=== PATIENT | female | born 1975 | race Two or more races ===

== ENCOUNTER 2019-10-09 18:51 | Emergency (ER) | payer OTHER ==
[~2019-10-09] VITALS: Ht 177.8 cm; Wt 85.3 kg
[~2019-10-09 18:51] MED LIST: CELEBREX100 MG PO; CYMBALTA30 MG; MIRALAX510 GM PO; SKELAXIN800 MG PO; SULFAMETHOXAZOL1 TA4 PO; SYNTHROID75 MCG; [UNRECOGNIZED DRUG - REMARK]
[2019-10-10] MEDS ORDERED: KETO10TA2 PO (02:26)
== END 2019-10-10 02:39 ==
LOC: ER 18:51
DX: N83.292 Other ovarian cyst, left side (principal); D25.9 Leiomyoma of uterus, unspecified

== ENCOUNTER 2019-10-20 17:49 | Emergency (ER) | payer OTHER ==
[~2019-10-20] VITALS: Ht 177.8 cm; Wt 86.2 kg
[~2019-10-20 17:49] MED LIST changes: +KETO10TA2 PO
== END 2019-10-20 19:48 | disposition home or self-care (01) ==
LOC: ER 17:49
DX: N83.291 Other ovarian cyst, right side (principal)

== ENCOUNTER → 2021-12-01 | Emergency (ER) | payer OTHER ==
[~2021-12-01] VITALS: Ht 152.4 cm; Wt 81.6 kg
== END | disposition home or self-care (01) ==
LOC: ER 20:33
DX: M54.32 Sciatica, left side (principal)

== ENCOUNTER 2022-06-24 00:39 | Emergency (ER) | payer OTHER ==
[~2022-06-24] VITALS: Ht 177.8 cm; Wt 83.9 kg
[2022-06-24] MEDS ORDERED: DICLOFENAC POTA50 MG PO (03:18)
[2022-06-24] MEDS ORDERED: NORFLEX100MG PO (03:18)
== END 2022-06-24 03:43 | disposition home or self-care (01) ==
LOC: ER 00:39
DX: R07.89 Other chest pain (principal); M54.9 Dorsalgia, unspecified

== ENCOUNTER 2023-11-18 03:13 | Emergency (ER) | payer OTHER ==
[~2023-11-18] VITALS: Ht 378.5 cm; Wt 86.2 kg
[~2023-11-18 03:13] MED LIST changes: +DICLOFENAC POTA50 MG PO; +NORFLEX100MG PO
[2023-11-18] MEDS ORDERED: PROMETHAZINE HCL 50 MG/ML AMPUL IM STA (03:58)
[2023-11-18] MEDS ORDERED: MEPERIDINE HCL/PF 50 MG/ML VIAL IM STA (03:58)
[2023-11-18] MEDS ORDERED: 0.9 % SODIUM CHLORIDE 1,000 ML IV ONE (04:00)
[2023-11-18 04:20] LABS: HEMATOCRIT 41.4 % (36.0-45.00); HEMOGLOBIN 13.9 g/dL (12.0-15.00); MEAN CORPUSCULAR HEMOGLOBIN 27.2 pg (27.00-32.0); MEAN CORPUSCULAR HGB CONC 33.5 g/dl (32.0-36.0); PLATELET COUNT 210 K/uL (150-450); RED BLOOD COUNT 5.11 M/uL (4.00-6.00); RED CELL DISTRIBUTION WIDTH 14.6 % (11.5-14.5)
[2023-11-18 04:51] LABS: ANION GAP 10 (10.0-20.0); BLOOD UREA NITROGEN 14 mg/dL (7-18); BUN CREA RATIO 18 (7.0-25.0); CALCIUM 8.9 mg/dL (8.5-10.1); CARBON DIOXIDE 25 mEq/L (21-32); CHLORIDE 109 mmol/L (98-107); GFR 77.22; GLUCOSE FASTING 130 mg/dL (65-100); OSMOLALITY SERUM 282 MOSM/KG (275-295); POTASSIUM 3.55 mEq/L (3.5-5.1); SODIUM 140 mmol/L (136-145)
[2023-11-18 04:52] LABS: HCG QUANTITATIVE < 1 mUI/mL (1-3)
[2023-11-18 04:56] LABS: URINE APPEARANCE Clear; URINE BILIRRUBIN Negative (NEGATIVE); URINE BLOOD Large; URINE COLOR Red; URINE GLUCOSE Negative (NEGATIVE); URINE LEUKOCYTE Small; URINE NITRATE Negative; URINE UROBILINOGEN 0.2 E.U./dl
[2023-11-18 04:57] LABS: URINE BACTERIA 343.9 uL (0.0-1933); URINE EPITHELIAL CELLS 3.5 uL (0.0-38.8); URINE RBC 9112.1 uL (0.0-20.8); URINE WBC 31.3 uL (0.0-23.2)
[2023-11-18 05:08] LABS: URINE PROTEIN 100 (NEGATIVE)
== END 2023-11-18 09:54 | disposition home or self-care (01) ==
LOC: ER 03:13
PROVIDERS: General Practice
DX: R10.2 Pelvic and perineal pain (principal); N93.8 Other specified abnormal uterine and vaginal bleeding; E28.319 Asymptomatic premature menopause